=== PATIENT | female | born 1940 | race Caucasian/White ===

== ENCOUNTER 2016-11-28 14:44 | Emergency (ER) | payer MEDICARE ==
--- NOTE | ~2016-11-28 | CT71 ---
[facility] A Service of [facility] RADIOLOGY TEXT RESULTS PATIENT: MARAH CHAN LOCATION: SED : 42 UNIT #: [id number] AGE: [address]: Ronald Velázquez MD SEX: F ORDER DR: [id number] [place] [address] [id number] E MR#: [id number] Acc #: [id number] NAME: MARAH CHAN : 1940 SEX: F STUDY DATE/TIME: 11/28/2016 14:36 UNIT: SED ROOM: STUDY DESCRIPTION: CT Head Wo Contrast Attending Physician: Ronald Velázquez M.D. Referring Physician: Ronald Velázquez M.D. Ordering Physician: Ronald Velázquez M.D. Primary Care Physician: No Primary Care Physician MEDICAL IMAGING REPORT This report is preliminary unless electronic signature is present. EXAM Head CT without contrast. HISTORY Fell. Dementia. Head laceration. Multiple falls. Alzheimer-type dementia. Laceration in the middle of the forehead. Acute presentation. COMMENT Routine noncontrasted head CT is reviewed. There is a comparison study from 09/17/2016. No displaced calvarial fracture. Soft tissue swelling, left forehead area, consistent with site of injury described. No radiopaque foreign body is seen. The visualized paranasal sinuses show only minor mucosal thickening and no air-fluid level. The mastoid air cells are essentially clear. There is artifact on the lower images from patient motion. Redemonstrated is moderate white matter low attenuation, nonspecific, likely due to small vessel disease and not appreciably changed. There is no evidence for acute intracranial hemorrhage or extraaxial fluid collection. Generalized atrophy. No intracranial mass effect. No acute cortical infarct suspected. IMPRESSION 1. No acute intracranial injury is suspected. There is unfortunately considerable motion limitation of the lower images. 2. Redemonstration of probable sequelae of small vessel disease, not appreciably changed from 09/17/2016. [facility] A Service of [facility] RADIOLOGY TEXT RESULTS PATIENT: MARAH CHAN LOCATION: SED : 42 UNIT #: [id number] AGE: [address]: Ronald Velázquez MD SEX: F ORDER DR: Dictated by... Stephanie Copeland M.D. THIS IS AN ELECTRONICALLY VERIFIED REPORT Stephanie Copeland M.D. at 11/29/2016 2:01 PM TAN/supriya TD: 11/28/2016 18:34 JOB #: [id number] MEDICAL IMAGING REPORT
[~2016-11-28 14:44] MED LIST: ARICEPT5 M1 PO; ASPIRIN81 M2 PO; BUMEX; LEXAPRO; LEXAPRO PO; MACROBID100 M1; MELATONIN3 M4 PO; PRAVASTATIN SOD80 MG PO; SEROQUEL; [UNRECOGNIZED DRUG - OTHER]
== END 2016-11-28 16:00 | disposition home or self-care (01) ==
LOC: SED 14:44
DX: S09.90XA Unspecified injury of head, initial encounter (principal); S01.81XA Laceration without foreign body of other part of head, initial encounter; Z23 Encounter for immunization; E78.5 Hyperlipidemia, unspecified; I25.2 Old myocardial infarction; W19.XXXA Unspecified fall, initial encounter; Y92.9 Unspecified place or not applicable
CPT/HCPCS: 70450; 90471; 90715; 99284

== ENCOUNTER 2016-12-02 19:15 | Emergency (ER) | payer MEDICARE ==
--- NOTE | ~2016-12-02 | EKG ---
PATIENT: MARAH CHAN UNIT #: [id number] Ventricular Rate: 70 BPM Atrial Rate: 70 BPM P-R Interval: 164 ms QRS Duration: 88 ms Q-T Interval: 476 ms QTC Calculation(Bezet): 514 ms P [place]: 23 degrees Calculated R [place]: 50 degrees Calculated T [place]: 31 degrees Diagnosis Line: Normal sinus rhythm Diagnosis Line: Prolonged QT Baseline wander Diagnosis Line: Abnormal ECG Diagnosis Line: When compared with ECG of 02-SEP-2016 16:56, Diagnosis Line: QT has lengthened Diagnosis Line: Confirmed by CAITLYN LEON MD ([id number]) on 12/04/2016 Diagnosis Line: 9:16:08 AM INTERPRETING MD: EDWARD PARKER
--- NOTE | ~2016-12-02 | CR72 ---
[facility] A Service of [facility] RADIOLOGY TEXT RESULTS PATIENT: MARAH CHAN LOCATION: [facility] : 42 UNIT #: [id number] AGE: [address]: Meliton Barboza MD SEX: F ORDER DR: [id number] [facility] [address] [place], [place] [address] [id number] E MR#: [id number] Acc #: [id number] NAME: MARAH CHAN : 1940 SEX: F STUDY DATE/TIME: 12/02/2016 17:37 UNIT: [facility] ROOM: STUDY DESCRIPTION: CR Chest Single View Portable Attending Physician: Meliton Barboza M.D. Ordering Physician: Meilton Barboza M.D. Primary Care Physician: No Primary Care Physician MEDICAL IMAGING REPORT This report is preliminary unless electronic signature is present EXAM Chest x-ray single-view portable HISTORY Altered mental status, dementia, and confusion today. COMMENT A single frontal portable view of the chest timed 1737 on 12/02/2016 are reviewed. COMPARISON None. FINDINGS Mild rotation of the patient to the right. Top normal heart size. Evidence for old granulomatous disease. No acute congestive failure, pleural effusion, or pneumothorax. No acute-appearing parenchymal infiltrate. IMPRESSION 1. No active disease is seen in the chest. Dictated by... Stephanie Copeland M.D. THIS IS AN ELECTRONICALLY VERIFIED REPORT Stephanie Copeland M.D. at 12/03/2016 10:20 AM SAC/aa TD: 12/03/2016 10:01 JOB #: [id number] [facility] A Service [facility] RADIOLOGY TEXT RESULTS PATIENT: MARAH CHAN LOCATION: [facility] : 42 UNIT #: [id number] AGE: [address]: Meliton Barboza MD SEX: F ORDER DR: MEDICAL IMAGING REPORT Page 1 of 1 COPY
[2016-12-02 17:18] LABS: URINE SOURCE CLEAN CATCH
[2016-12-02 17:28] LABS: URINE APPEARANCE CLEAR; URINE BILIRUBIN NEG (NEG); URINE BLOOD NEG (NEG); URINE COLOR YELLOW; URINE GLUCOSE NEG (NEG); URINE KETONE NEG (NEG); URINE LEUKOCYTE ESTERASE NEG (NEG); URINE NITRATE NEG (NEG); URINE PROTEIN NEG (NEG); URINE SPECIFIC GRAVITY 1.003 (1.003-1.035); URINE UROBILINOGEN 0.2 MG/DL (NEG)
[2016-12-02 17:46] LABS: CULTURE INDICATED? NO
[2016-12-02 17:55] LABS: POC - CKMB 2.7 ng/mL (0.0-7.9); POC - TROPONIN <0.05 ng/mL (<=0.05)
[2016-12-02 17:58] LABS: BASOPHIL% 0.5 % (0-2.5); EOSINOPHIL# 0.5 X10e3 (0-0.7); EOSINOPHIL% 6.4 % (0.0-7.0); HEMATOCRIT 40.8 % (35.0-45.0); HEMOGLOBIN 13.2 gm/dL (12.0-16.0); LYMPHOCYTE# 1.7 X10e3 (1.0-3.5); LYMPHOCYTE% 21.8 % (17.0-45.0); MEAN CELL VOLUME 93.7 FL (83-96); MEAN CORPUSCULAR HEMOGLOBIN 30.4 PG (28-34); MEAN CORPUSCULAR HGB CONC 32.4 g/dL (30-36); MEAN PLATELET VOLUME 10.1 FL (6.5-11.5); MONOCYTE# 0.7 X10e3 (0-1.0); MONOCYTE% 9.3 % (3.0-12.0); NEUTROPHIL# 4.7 X10e3 (1.5-7.1); PLATELET COUNT 235 X10e3 (140-420); RED BLOOD COUNT 4.35 X10e (3.90-5.30); RED CELL DISTRIBUTION WIDTH 12.9 % (11.0-15.5); WHITE BLOOD COUNT 7.6 X10e3 (4.0-10.5)
[2016-12-02 18:02] LABS: DIFF IND NO
[2016-12-02 18:16] LABS: ALBUMIN SERUM 4.4 g/dL (3.5-5.0); ALKALINE PHOSPHATASE 73 U/L (32-92); ALT (SGPT) 14 U/L (10-40); AST (SGOT) 25 U/L (10-42); BILIRUBIN, DIRECT 0.2 mg/dL (0.0-0.2); BILIRUBIN,INDIRECT 0.5 mg/dL (0.0-0.9); BILIRUBIN,TOTAL 0.7 mg/dL (0.2-2.0); BLOOD UREA NITROGEN 21 mg/dL (9-23); BUN/CREATININE RATIO 23.33; CALCIUM SERUM 9.2 mg/dL (8.4-10.2); CARBON DIOXIDE 31 mmol/L (22-31); CHLORIDE 97 mmol/L (100-111); CREATININE SERUM 0.9 mg/dL (0.6-1.4); GLOM FILT RATE Estimated ABOVE60 mL/min (>60); GLUCOSE FASTING 85 mg/dL (70-110); POTASSIUM 3.3 mmol/L (3.5-5.1); PROTEIN TOTAL SERUM 7.3 g/dL (6.0-8.3); SODIUM 139 mmol/L (135-145)
== END 2016-12-03 06:08 | disposition home or self-care (01) ==
LOC: CED 19:15
PROVIDERS: Emergency Medicine
DX: F03.91 Unspecified dementia, unspecified severity, with behavioral disturbance (principal); Z79.899 Other long term (current) drug therapy
CPT/HCPCS: 36415; 71010; 80048; 80076; 81003; 82553; 83605; 84484; 85025; 87040; 93005; 96372; 99284; J3486

== ENCOUNTER 2017-01-20 14:37 | Emergency (ER) | payer MEDICARE ==
--- NOTE | ~2017-01-20 | CR72 ---
[facility] A Service of [facility] RADIOLOGY TEXT RESULTS PATIENT: MARAH CHAN LOCATION: [facility] : 42 UNIT #: [id number] AGE: [address]: Richard Cole MD SEX: F ORDER DR: [id number] [facility] [address] [place], [place] [address] [id number] E MR#: [id number] Acc #: [id number] NAME: MARAH CHAN : 1940 SEX: F STUDY DATE/TIME: 01/20/2017 19:25 UNIT: [facility] ROOM: STUDY DESCRIPTION: CR Chest Single View Portable Attending Physician: Richard Cole M.D. Ordering Physician: Ed Que Katz M.D. Primary Care Physician: No Primary Care Physician MEDICAL IMAGING REPORT This report is preliminary unless electronic signature is present EXAM Portable chest. HISTORY Cough for 2 weeks. FINDINGS The cardiac size and pulmonary vascularity are normal. Mild linear atelectasis or scarring at the left base. No airspace infiltrates or effusions. Incidental small calcified bilateral hilar nodes and calcified granuloma in the right lung base. IMPRESSION No acute findings. No active disease. Dictated by... Andrea Morales M.D. THIS IS AN ELECTRONICALLY VERIFIED REPORT Andrea Morales M.D. at 01/20/2017 11:17 PM COURTNEY/zainab TD: 01/20/2017 22:28 JOB #: [id number] MEDICAL IMAGING REPORT Page 1 of 1 COPY
--- NOTE | ~2017-01-20 | EKG ---
PATIENT: MARAH CHAN UNIT #: [id number] Ventricular Rate: 56 BPM Atrial Rate: 56 BPM P-R Interval: 140 ms QRS Duration: 78 ms Q-T Interval: 522 ms QTC Calculation(Bezet): 503 ms P [place]: 13 degrees Calculated R [place]: 49 degrees Calculated T [place]: 33 degrees Diagnosis Line: Sinus bradycardia Diagnosis Line: Prolonged QT Diagnosis Line: Abnormal ECG Diagnosis Line: When compared with ECG of 02-DEC-2016 17:48, Diagnosis Line: ST elevation now present in Lateral leads Diagnosis Line: Confirmed by CAITLYN LEON MD ([id number]) on 01/21/2017 Diagnosis Line: 10:04:54 AM INTERPRETING MD: EDWARD PARKER
--- NOTE | ~2017-01-20 | CT71 ---
[facility] A Service of [facility] RADIOLOGY TEXT RESULTS PATIENT: MARAH CHAN LOCATION: [facility] : 42 UNIT #: [id number] AGE: [address]: Richard Cole MD SEX: F ORDER DR: [id number] [place] [address] [place], [place] [address] [id number] E MR#: [id number] Acc #: [id number] NAME: MARAH CHAN : 1940 SEX: F STUDY DATE/TIME: 01/20/2017 19:54 UNIT: Z[facility] ROOM: STUDY DESCRIPTION: CT Head Wo Contrast Attending Physician: Richard Cole M.D. Referring Physician: Greg Nguyen M.D. Ordering Physician: Lul Katz M.D. Primary Care Physician: No Primary Care Physician MEDICAL IMAGING REPORT This report is preliminary unless electronic signature is present EXAM CT brain without contrast. DATE OF EXAM 01/20/2017 HISTORY Confusion and mental status decline today. TECHNIQUE This CT exam was performed with one or more of the following radiation dose reduction techniques: automatic exposure control, adjustment of mA and/or kV according to patient size, and iterative reconstruction. FINDINGS CT brain without contrast demonstrates moderate chronic ischemic changes in the deep white matter bilaterally and [id number] generalized cerebral cortical atrophy. No intracranial hemorrhage, midline shift or ventricular dilatation or focal atrophy. IMPRESSION 1. No acute intracranial findings. 2. Moderate chronic ischemic changes in the deep white matter bilaterally and tmwr-[id number] generalized cerebral cortical atrophy. Dictated by... Andrea Morales M.D. THIS IS AN ELECTRONICALLY VERIFIED REPORT Andrea Morales M.D. at 01/20/2017 11:17 PM [facility] A Service [facility] RADIOLOGY TEXT RESULTS PATIENT: MARAH CHAN LOCATION: [facility] : 42 UNIT #: [id number] AGE: [address]: Richard Cole MD SEX: F ORDER DR: Gabi TD: 01/20/2017 22:34 JOB #: [id number] MEDICAL IMAGING REPORT Page 1 of 1 COPY
[2017-01-20 16:05] LABS: BASOPHIL# 0.1 X10e3 (0-0.3); BASOPHIL% 0.7 % (0-2.5); EOSINOPHIL# 0.2 X10e3 (0-0.7); EOSINOPHIL% 2.1 % (0.0-7.0); HEMATOCRIT 34.2 % (35.0-45.0); HEMOGLOBIN 11.1 gm/dL (12.0-16.0); LYMPHOCYTE# 1.3 X10e3 (1.0-3.5); LYMPHOCYTE% 17.1 % (17.0-45.0); MEAN CELL VOLUME 92.9 FL (83-96); MEAN CORPUSCULAR HEMOGLOBIN 30.3 PG (28-34); MEAN CORPUSCULAR HGB CONC 32.6 g/dL (30-36); MEAN PLATELET VOLUME 9.1 FL (6.5-11.5); MONOCYTE# 1.1 X10e3 (0-1.0); MONOCYTE% 14.2 % (3.0-12.0); NEUTROPHIL# 5.1 X10e3 (1.5-7.1); NEUTROPHIL% 65.9 % (40-75); PLATELET COUNT 240 X10e3 (140-420); RED BLOOD COUNT 3.68 X10e (3.90-5.30); RED CELL DISTRIBUTION WIDTH 13.9 % (11.0-15.5); WHITE BLOOD COUNT 7.7 X10e3 (4.0-10.5)
[2017-01-20 16:11] LABS: DIFF IND NO
[2017-01-20 16:13] LABS: POC - CKMB 9.2 ng/mL (0.0-7.9); POC - TROPONIN <0.05 ng/mL (<=0.05)
[2017-01-20 16:18] LABS: INR 1.1; PROTHROMBIN TIME (PATIENT) 11.2 SECONDS (9.6-11.5)
[2017-01-20 16:21] LABS: URINE SOURCE CLEAN CATCH
[2017-01-20 16:25] LABS: URINE APPEARANCE CLEAR; URINE BILIRUBIN NEG (NEG); URINE BLOOD NEG (NEG); URINE COLOR YELLOW; URINE GLUCOSE NEG (NEG); URINE KETONE NEG (NEG); URINE LEUKOCYTE ESTERASE NEG (NEG); URINE NITRATE NEG (NEG); URINE PH 7.5 (5-8); URINE PROTEIN NEG (NEG); URINE SPECIFIC GRAVITY 1.012 (1.003-1.035)
[2017-01-20 16:31] LABS: ALBUMIN SERUM 3.2 g/dL (3.5-5.0); BILIRUBIN, DIRECT 0.2 mg/dL (0.0-0.2); BILIRUBIN,INDIRECT 0.2 mg/dL (0.0-0.9); BILIRUBIN,TOTAL 0.4 mg/dL (0.2-2.0); BUN/CREATININE RATIO 41.42; CALCIUM SERUM 8.9 mg/dL (8.4-10.2); CREATININE SERUM 0.7 mg/dL (0.6-1.4); GLOM FILT RATE Estimated 85.4 mL/min (>60); POTASSIUM 4.1 mmol/L (3.5-5.1); PROTEIN TOTAL SERUM 6.1 g/dL (6.0-8.3)
[2017-01-20 16:35] LABS: CULTURE INDICATED? NO
[2017-01-20] MEDS ORDERED: CATAPRES-TTS-10.1 M1 TD (19:10)
[2017-01-20] MEDS ORDERED: ASPIRIN81 MG PO (19:10)
[2017-01-20] MEDS ORDERED: LEXAPRO20 MG PO (19:11)
[2017-01-20] MEDS ORDERED: LAMICTAL PO (19:12)
[2017-01-20] MEDS ORDERED: ZAROXYLYN PO (19:13)
[2017-01-20] MEDS ORDERED: K-DUR20 ME1 PO (19:14)
[2017-01-20] MEDS ORDERED: RISPERDAL0.25 MG PO (19:14)
[2017-01-20] MEDS ORDERED: RAZADYNE4 M1 PO (19:15)
[2017-01-20] MEDS ORDERED: MELATONIN3 MG PO (19:15)
[2017-01-20] MEDS ORDERED: TYLENOL325 M1 PO (19:16)
[2017-01-20] MEDS ORDERED: ZYPREXA10 M1 IM (19:16)
[2017-01-20] MEDS ORDERED: ATIVAN0.5 M1 PO (19:17)
[2017-01-20] MEDS ORDERED: MILK OF MAGNESIA PO (19:18)
[2017-01-20] MEDS ORDERED: MYLANTA LIQUID PO (19:18)
[2017-01-20] MEDS ORDERED: LEVOTHYROXINE50 MCG PO (19:20)
[2017-01-20] MEDS ORDERED: [UNRECOGNIZED DRUG - CODE] PO (19:20)
== END 2017-01-20 22:29 | disposition home or self-care (01) ==
LOC: CED 14:37
PROVIDERS: Emergency Medicine
DX: R41.82 Altered mental status, unspecified (principal); I95.9 Hypotension, unspecified; Z79.899 Other long term (current) drug therapy
CPT/HCPCS: 36415; 70450; 71010; 80048; 80076; 81003; 82553; 84484; 85025; 85610; 93005; 96360; 99285

== ENCOUNTER 2017-02-08 16:34 | Inpatient (IN) | payer MEDICARE ==
--- NOTE | ~2017-02-08 | EKG ---
PATIENT: MARAH CHAN UNIT #: [id number] Ventricular Rate: 63 BPM Atrial Rate: 63 BPM P-R Interval: 164 ms QRS Duration: 82 ms Q-T Interval: 436 ms QTC Calculation(Bezet): 446 ms P [place]: 28 degrees Calculated R [place]: 35 degrees Calculated T [place]: 46 degrees Diagnosis Line: Normal sinus rhythm Diagnosis Line: Normal ECG Diagnosis Line: When compared with ECG of 20-JAN-2017 16:15, Diagnosis Line: QT has shortened Diagnosis Line: Confirmed by LIZZIE DAVENPORT MD ([id number]) on Diagnosis Line: 02/10/2017 3:17:09 PM INTERPRETING MD: ISSAC PARKER
--- NOTE | ~2017-02-08 | CR72 ---
[facility] Service of [facility] RADIOLOGY TEXT RESULTS PATIENT: MARAH CHAN LOCATION: [facility] 238-01 : 42 UNIT #: [id number] AGE: [address]: Ashlyn Lora MD SEX: F ORDER DR: [id number] [facility] [address] [place], [place] [address] [id number] I MR#: [id number] Acc #: [id number] NAME: MARAH CHAN : 1940 SEX: F STUDY DATE/TIME: 02/08/2017 18:23 UNIT: C3A PCU ROOM: 340 STUDY DESCRIPTION: CR Chest Single View Portable Attending Physician: Ashlyn Lora M.D. Ordering Physician: Mercedez Juarez M.D. Primary Care Physician: Primary Care Physician No MEDICAL IMAGING REPORT This report is preliminary unless electronic signature is present EXAM Portable chest, 02/08 INDICATION Mental status changes today with suspected fall. FINDINGS AP view of the chest compared with 01/20/2017. Cardiac and mediastinal contours are stable. The lungs are clear. No pneumothorax. IMPRESSION No active disease. Dictated by... Meliton Beckham Jr., M.D. THIS IS AN ELECTRONICALLY VERIFIED REPORT Meliton Beckham Jr., M.D. at 02/09/2017 8:46 PM AMENA/nieves TD: 02/09/2017 04:27 JOB #: [id number] MEDICAL IMAGING REPORT Page 1 of 1 COPY
--- NOTE | ~2017-02-08 | HP ---
Unit #: [id number] #: [id number] Patient: MARAH CHAN [id number] [address] [place], [place] [address] [id number] I MR#: [id number] NAME: MARAH CHAN ROOM: 340 Age: 76 Sex: F Admission Date: 02/08/2017 : 1940 Attending Physician: Ashlyn Lora M.D. Primary Care Physician: Primary Care Physician No HISTORY AND PHYSICAL CHIEF COMPLAINT Low blood pressure. HISTORY OF PRESENT ILLNESS This is a 76-year-old female who has dementia and is not able to provide history, most of the history was taken from patient's sister who is at the bedside. The patient is being evaluated in room 340. The patient was noted to have low blood pressure at the intermediate. She was brought to the ER. Blood pressure was low but which has resolved at this time. The patient has confusion. She has a history of dementia. According to the patient's sister, she is her normal self today, although yesterday she was very lethargic. The patient was found to have a urinary tract infection and was admitted for treatment, hydration. Patient is awake, alert and oriented x1. She seems to be very comfortable although she is very confused and is not able to provide any history. There is no history of vomiting, nausea, diarrhea, or any pain anywhere. PAST MEDICAL HISTORY 1. History of dementia. 2. History of coronary artery disease. 3. History of hypertension. 4. History of hyperlipidemia. 5. History of coronary artery disease. PAST SURGICAL HISTORY None. HOME MEDICATIONS Reviewed and include: 1. Aspirin 81 mg daily. 2. Lexapro 10 mg daily. 3. Lamictal 25 mg daily. 4. Zaroxolyn 2.5 mg Thursday, Thursday, and Thursday. 5. Tylenol 650 q.4 h. p.r.n. 6. Ativan 0.5 mg q.12 h. p.r.n. 7. Niferex 150 mg b.i.d. 8. Levothyroxine 50 mcg daily. 9. Potassium 20 mEq three times a week. ALLERGIES No known drug allergies. SOCIAL HISTORY The patient is a resident of a intermediate. No history of smoking, Unit #: [id number] #: [id number] Patient: MARAH CHAN alcohol or drug abuse. FAMILY HISTORY Unremarkable. REVIEW OF SYSTEMS A 12-point review of systems was covered with the patient's sister and seems to be stable. PHYSICAL EXAMINATION VITAL SIGNS: Blood pressure 170/69, on admission it was 97/60, oxygen saturation is 100% on room air, respiratory rate 18, pulse 87, temperature 98.1. GENERAL: The patient is lying in bed. Does not seem to be in any respiratory distress. HEAD: Normocephalic. Eye movements are normal. Pale conjunctivae. NECK: Supple. CHEST: Fair air entry, no additional sounds. HEART: S1, S2 positive, regular rhythm. ABDOMEN: Mild tenderness, although I am not sure whether it is a tenderness or patient does not want me to examine her abdomen. EXTREMITIES: Trace edema is present, left is more than right. NEUROLOGIC: Awake, alert. Moving all her extremities. Patient is confused. DIAGNOSTIC STUDIES LABORATORY: Urinalysis shows 3+ leukocyte esterase, 3+ urine bacteria. WBC 8.3, hemoglobin 10.1, hematocrit 30.3, platelet count 271. Lactic acid 1.1. Sodium 138, potassium 3.9, chloride 104, BUN 25, creatinine 1.1, liver enzymes are stable. CK is 991. Blood cultures are no growth. ASSESSMENT AND PLAN The patient is being admitted to telemetry unit with: 1. Hypertension. 2. Urinary tract infection. 3. Dementia. 4. Anemia. 5. Coronary artery disease. 6. Hypothyroidism. PLAN 1. Admit to [facility]. 2. IV Rocephin 1 gram q.24 h. is being started. 3. IV fluids are being started. 4. Urine culture is done. 5. Blood culture is done. 6. Home medications have been reviewed and readjusted. 7. Plan of care has been discussed with patient's sister at length. She does verbalize understanding. 8. Please refer to progress note for further orders. Dictated by Ashlyn Lora M.D. Unit #: [id number] #: [id number] Patient: MARAH CHAN AMALIA/anupam TD: 02/09/2017 15:45 JOB #: [id number] HISTORY AND PHYSICAL Page 1 of 1 X Ashlyn Lora MD HISTORY AND PHYSICAL
--- NOTE | ~2017-02-08 | CR252 ---
[facility] A Service of [facility] RADIOLOGY TEXT RESULTS PATIENT: MARAH CHAN LOCATION: [facility] 238-01 : 42 UNIT #: [id number] AGE: [address]: Ashlyn Lora MD SEX: F ORDER DR: [id number] [facility] [address] [place], [place] [address] [id number] I MR#: [id number] Acc #: [id number] NAME: MARAH CHAN : 1940 SEX: F STUDY DATE/TIME: 02/08/2017 18:26 UNIT: C3A PCU ROOM: 340 STUDY DESCRIPTION: CR Tibia and Fibula 2 Views Lt Attending Physician: Ashlyn Lora M.D. Ordering Physician: Mercedez Juarez M.D. MEDICAL IMAGING REPORT This report is preliminary unless electronic signature is present EXAM Left tib-fib, 02/08 INDICATION Lower extremity pain after fall today. FINDINGS There is no evidence of fracture, dislocation, or radiopaque foreign body. IMPRESSION Normal tibia and fibula. Dictated by... Meliton Beckham Jr., M.D. THIS IS AN ELECTRONICALLY VERIFIED REPORT Meliton Beckham Jr., M.D. at 02/09/2017 8:46 PM AMENA/nieves TD: 02/09/2017 04:29 JOB #: [id number] MEDICAL IMAGING REPORT Page 1 of 1 COPY
--- NOTE | ~2017-02-08 | A ---
[facility] DATE: 02/18/17 Patient: MARAH CHAN Physician: SELENA Address: [address] [place] [address] Room/Bed: [address] [place] [address], Zip: [place] [address] Admit Date: 02/08/17 Date of : 42 Height: 5 4 Weight: 132 60 NUTRITIONAL ASSESSMENT: REASON: LOS ASSESSMENT PT IS 76 Y.O. FEMALE ADMITTED FOR UTI, S/P FALL PMH: DEMENTIA, HTN, CAD, HLD, HYPOTHYROIDISM Anthropometrics: 5'4", WT: 132# (60 KG), BMI: 22.7, 110%IBW Labs: BUN: 5, ALB: 2.9 Meds: KCL, MAG SULFATE, PEPCID, SYNTHROID, NACL I/O & Bowel function: 480/7 Skin Integrity: DRY SKIN NOTED ALL OVER BODY Assessment: CHART REVIEWED AND EVENTS NOTED. PT SEEN FOR LENGTH OF STAY ASSESSMENT (10 DAYS). PT ASLEEP AT TIME OF VISIT-RD ATTEMPTED TO WAKE PT. PT DID NOT WAKE TO VERBAL CUES. PER RN AND CHART, PT NOTED TO HAVE DEMENTIA, NOTING FAIR PO INTAKE AND APPETITE. PLANS IN PLACE FOR PT TO D/C TO REHAB WHEN BED AVAILABLE. RD TO REMAIN AVAILABLE. Dx: INADEQUATE NUTRIENT INTAKE R/T PMH-DEMENTIA AEB RN AND CHART REVIEW/REPORT ABOVE. Intervention: 1. REGULAR DIET Monitoring, Evaluation and Goals: 1. ORAL INTAKE; CONSUME >50% OF MEALS W/NO C/O N/V/D 2. WEIGHTS; PROMOTE WEIGHT MAINTENANCE 3. GI; PROMOTE REGULAR BOWEL FUNCTION MONITOR: -PO INTAKE/APPETITE -WEIGHTS Recommendations: 1. CONTINUE TO ENCOURAGE ADEQUATE PO INTAKE 2. IF PO INTAKE <50%, PLEASE ORDER APPROPRIATE SUPPLEMENTS FOR ADDITIONAL PROTEIN AND KCAL (ENSURE ENLIVE, ENSURE PUDDING, MAGIC CUP OR ENSURE CLEAR BID) [facility] Therapy DATE: 02/18/17 Patient: MARAH CHAN Physician: SELENA Address: [address] [place] [address] Room/Bed: [address] [place] [address], Zip: [place] [address] Admit Date: 02/08/17 Date of : 42 Height: 5 4 Weight: 132 60 3. CONSIDER ADDING MVI W/MINERAL DAILY TO PT'S CURRENT MEDICATION REGIMEN RD WILL F/U PER PROTOCOL PT IS MILDLY COMPROMISED Respectfully, BETH ANDERSEN MS, RD, LD Food and Nutritional Services [facility] cc: client file
--- NOTE | ~2017-02-08 | CR106 ---
[facility] A Service of [facility] & [facility] RADIOLOGY TEXT RESULTS PATIENT: MARAH CHAN LOCATION: [facility] 238-01 : 42 UNIT #: [id number] AGE: [address]: Ashlyn Lora MD SEX: F ORDER DR: [id number] [facility] [address]. [place], [place] [address] [id number] I MR#: [id number] Acc #: [id number] NAME: MARAH CHAN : 1940 SEX: F STUDY DATE/TIME: 02/08/2017 18:30 UNIT: C3A PCU ROOM: 340 STUDY DESCRIPTION: CR Femur 2 Views Lt Attending Physician: Ashlyn Lora M.D. Ordering Physician: Mercedez Juarez M.D. MEDICAL IMAGING REPORT This report is preliminary unless electronic signature is present EXAM Left femur, 02/08/2017 INDICATION Left leg pain after fall today. FINDINGS 4 views of the left femur were obtained. No acute fracture or malalignment is identified. IMPRESSION Negative left femur. Dictated by... Meliton Beckham Jr., M.D. THIS IS AN ELECTRONICALLY VERIFIED REPORT Meliton Beckham Jr., M.D. at 02/09/2017 8:46 PM AMENA/nieves TD: 02/09/2017 04:30 JOB #: [id number] MEDICAL IMAGING REPORT Page 1 of 1 COPY
--- NOTE | ~2017-02-08 | DS ---
Unit #: [id number] #: [id number] Patient: ERI ANDUJAR [id number] [address] [address] [id number] I MR#: [id number] NAME: ERI ANDUJAR ROOM: 238 Age: 76 Sex: F Admission Date: 02/08/2017 : 1940 Discharge Date: 02/13/2017 Attending Physician: Ashlyn Lora M.D. Primary Care Physician: No Primary Care Physician DISCHARGE SUMMARY FINAL DIAGNOSES 1. Hypotension on admission, even at the custodial, and was the reason for transfer to ER; has improved. 2. Urinary tract infection with urine culture positive for Proteus mirabilis more than 100,000 colonies, which is sensitive ceftriaxone and Bactrim. 3. History of significant dementia. 4. History of coronary artery disease. 5. History of hypertension. 6. History of hyperlipidemia. 7. Hypokalemia. 8. Hypothyroidism. DISCHARGE MEDICATIONS 1. Bactrim DS 1 tablet p.o. b.i.d. for 5 days. 2. Mylanta 30 mL q.6 p.r.n. 3. Levothyroxine 50 mcg p.o. every day. 4. Potassium 20 mEq every day. 5. Aspirin 81 mg every day. 6. Niferex 150 mg b.i.d. 7. Zaroxolyn 2.5 mg Thursday, Thursday, and Thursday. 8. Ativan 0.5 mg q.12 p.r.n. for anxiety. 9. Lexapro 10 mg every day. 10. LaMICtal 25 mg every day. 11. Tylenol 650 q.4 p.r.n. DIAGNOSTIC STUDIES LABORATORY: Workup on discharge: Troponin less than 0.03. BMP shows sodium 140, potassium 3.3, chloride 105, BUN 6, and creatinine 0.7. CK 458. CBC shows WBC 7.4, hemoglobin 9.8, hematocrit 29.9, and platelet count of 269. TSH 2.38. Lactic acid 1.1 on admission. Blood cultures are negative. SIGNIFICANT RADIOLOGICAL STUDIES DONE DURING HOSPITALIZATION: Ultrasound of lower extremity, which was limited exam, because patient is not very compliant. Right common femoral and superficial femoral veins are patent. Patient refused further. Left hip x-ray: No fracture or malalignment identified. Large volume of stool was seen. Left femur x-ray negative. No fractures. Left knee x-ray was negative. Unit #: [id number] #: [id number] Patient: ERI ANDUJAR Left tibia and fibula negative. These tests were done because of patient's history of fall at the custodial. Chest x-ray: No active disease. CT scan of the head, which shows atrophy with chronic ischemic changes. No acute changes were seen. HOSPITAL COURSE Ms. Eri Andujar is a 76-year-old female who was admitted on 02/08/17 with hypertension and had a fall in the custodial a few days ago. Patient was admitted to hospital and IV fluids were given because of blood pressure and was found to have urinary tract infection. Patient was started on IV Rocephin and she has received a few days of IV Rocephin. Blood cultures are negative. Patient has been afebrile all throughout. Patient did complain of chest pain one time. Cardiac enzymes were done, which were negative and not significant. Patient does have significant dementia. I have discussed with patient's daughter. Patient will be discharged to custodial in stable condition. EXAMINATION ON DISCHARGE VITAL SIGNS: Blood pressure is 102/54, respiratory rate 15, pulse is 80, temperature is 97.2, and oxygen saturation is 98%. HEENT: Head is normocephalic. CHEST: Fair air entry. No additional sounds (1) . HEART: Regular rhythm. ABDOMEN: Soft. EXTREMITIES: Trace edema. CONSULTING SERVICES PROJECT MANAGER: Patient is confused. DISCHARGE INSTRUCTIONS 1. Patient will be discharged home. 2. Potassium will be replaced before discharge. 3. Medications as per med rec. 4. Dr. Monson to follow the patient in custodial. 5. BMP to be done in one week. 6. PT and OT at rehab. Dictated by... Ashlyn Lora M.D. Gena TD: 02/13/2017 07:52 JOB #: [id number] Unit #: [id number] #: [id number] Patient: ERI ANDUJAR DISCHARGE SUMMARY Page 1 of 1 X Ashlyn Lora MD SUMMARY
--- NOTE | ~2017-02-08 | DS ---
Unit #: [id number] #: [id number] Patient: MARAH CHAN [id number] [address] [address] [id number] I MR#: [id number] NAME: MARAH CHAN ROOM: 238 Age: 76 Sex: F Admission Date: 02/08/2017 : 1940 Discharge Date: 02/17/2017 Attending Physician: Ashlyn Lora M.D. Primary Care Physician: No Primary Care Physician DISCHARGE SUMMARY ADDENDUM FINAL DIAGNOSIS Stays the same as previous. DISCHARGE MEDICATIONS 1. Earlier I had dictated that patient will need Bactrim DS twice a day for five days. At this time the patient has completed the course. 2. Patient has completed the course of IV antibiotics, does not require any more medication at this. So we can discontinue antibiotics. Patient's discharge was held because there was no bed available. Patient will be discharged home today. PHYSICAL EXAMINATION VITAL SIGNS ON DISCHARGE: Blood pressure 136/88, respiratory rate 18, pulse 67, temperature 97.3, oxygen saturation is 100%. HEENT: Head is normocephalic. CHEST: Fair air entry. Decreased at the bases. CVS: Regular rhythm. ABDOMEN: Soft. DISCHARGE INSTRUCTIONS 1. Again patient will be discharged to rehab facility in stable condition. 2. The patient's family will be informed, PT and OT to be done at the long term. 3. BNP and CBC to be done in one week. Dr. Monson to follow the patient. Dictated by... Lucinda Danielle/grupo TD: 02/17/2017 13:15 JOB #: [id number] Unit #: [id number] #: [id number] Patient: MARAH CHAN DISCHARGE SUMMARY Page 1 of 1 X Ashlyn Lora MD X DISCHARGE SUMMARY
--- NOTE | ~2017-02-08 | CR172 ---
[facility] A Service of [facility] & [facility] RADIOLOGY TEXT RESULTS PATIENT: MARAH CHAN LOCATION: [facility] 238-01 : 42 UNIT #: [id number] AGE: [address]: Ashlyn Lora MD SEX: F ORDER DR: [id number] [facility] [address] [place], [place] [address] [id number] I MR#: [id number] Acc #: [id number] NAME: MARAH CHAN : 1940 SEX: F STUDY DATE/TIME: 02/08/2017 18:29 UNIT: C3A PCU ROOM: 340 STUDY DESCRIPTION: CR Knee 3 Views Lt Attending Physician: Ashlyn Lora M.D. Ordering Physician: Mercedez Juarez M.D. MEDICAL IMAGING REPORT This report is preliminary unless electronic signature is present EXAM Left knee, 02/08 INDICATION Knee pain after fall today. FINDINGS 3 views of the left knee were obtained. There is no fracture or malalignment. There is no joint effusion. IMPRESSION Negative left knee. Dictated by... Meliton Beckham Jr., M.D. THIS IS AN ELECTRONICALLY VERIFIED REPORT Meliton Beckham Jr., M.D. at 02/09/2017 8:46 PM AMENA/nieves TD: 02/09/2017 04:34 JOB #: [id number] MEDICAL IMAGING REPORT Page 1 of 1 COPY
--- NOTE | ~2017-02-08 | US84 ---
[id number] [facility] [address] [place], [place] [address] [id number] I MR#: [id number] Acc #: [id number] NAME: MARAH CHAN : 1940 SEX: F STUDY DATE/TIME: 02/10/2017 8:02 UNIT: C2A ROOM: 238 STUDY DESCRIPTION: US LE Veins Complete Hernando Stdy Attending Physician: Ashlyn Lora M.D. Ordering Physician: Ashlyn Lora M.D. Primary Care Physician: Primary Care Physician No MEDICAL IMAGING REPORT This report is preliminary unless electronic signature is present EXAM Right lower extremity Doppler venous ultrasound DATE 02/10/2017 HISTORY Pain and swelling in bilateral lower extremities for approximately a year. Patient denies history of blood clots and denies prior surgery. COMPARISON None FINDINGS Special note: This patient was originally ordered for bilateral lower extremity venous ultrasound. Only a portion of the right lower extremity was imaged, documenting patency of the right common femoral and femoral veins without deep venous thrombosis. However, the patient refused complete imaging of the right lower extremity (popliteal, anterior and posterior tibial and peroneal veins) and the patient refused left lower extremity imaging. IMPRESSION Limited examination. The right common femoral and superficial femoral veins are patent. However, the patient refused further, complete imaging of the right lower extremity veins, and refused imaging of the left lower extremity veins. Repeat imaging can be obtained when the patient is able to tolerate or cooperate. Dictated by... Agueda Kinney M.D. THIS IS AN ELECTRONICALLY VERIFIED REPORT Agueda Kinney M.D. at 02/10/2017 5:00 PM [facility]/[place] TD: 02/10/2017 11:52 JOB #: [id number] MEDICAL IMAGING REPORT Page 1 of 1 COPY
--- NOTE | ~2017-02-08 | CT71 ---
[facility] A Service of [facility] RADIOLOGY TEXT RESULTS PATIENT: MARAH CHAN LOCATION: [facility] : 42 UNIT #: [id number] AGE: [address]: Ashlyn Lora MD SEX: F ORDER DR: [id number] [facility] [address] [place], [place] [address] [id number] I MR#: [id number] Acc #: [id number] NAME: MARAH CHAN : 1940 SEX: F STUDY DATE/TIME: 02/08/2017 18:01 UNIT: [facility] ROOM: 238 STUDY DESCRIPTION: CT Head Wo Contrast Attending Physician: Ashlyn Lora M.D. Ordering Physician: Mercedez Juarez M.D. Primary Care Physician: Primary Care Physician No MEDICAL IMAGING REPORT This report is preliminary unless electronic signature is present EXAM Head CT without contrast, 02/08/2017 HISTORY Acute onset of lethargy and confusion today, altered mental status, hypotensive. This CT exam was performed with one or more of the following radiation dose reduction techniques: automatic exposure control, adjustment of mA and/or kV according to patient size, and iterative reconstruction. FINDINGS Axial images of the brain obtained without contrast show generalized atrophy. There are chronic ischemic changes seen around the ventricles. There is no evidence of mass effect, hemorrhage, or edema and no midline shift is seen. No acute changes are noted. IMPRESSION Atrophy with chronic ischemic changes. No acute changes are seen. Dictated by... Krunal Lowe M.D. THIS IS AN ELECTRONICALLY VERIFIED REPORT Krunal Lowe M.D. at 02/10/2017 10:42 AM BERT/nieves TD: 02/09/2017 03:38 JOB #: [id number] MEDICAL IMAGING REPORT [facility] A Service of [facility] & [facility] RADIOLOGY TEXT RESULTS PATIENT: MARAH CHAN LOCATION: [facility] : 42 UNIT #: [id number] AGE: [address]: Ashlyn Lora MD SEX: F ORDER DR: Page 1 of 1 COPY
--- NOTE | ~2017-02-08 | CR150 ---
[facility] A Service of [facility] & [facility] RADIOLOGY TEXT RESULTS PATIENT: MARAH CHAN LOCATION: A 238-01 : 42 UNIT #: [id number] AGE: [address]: Ashlyn Lora MD SEX: F ORDER DR: [id number] [facility] [address] [place], [place] [address] [id number] I MR#: [id number] Acc #: [id number] NAME: MARAH CHAN : 1940 SEX: F STUDY DATE/TIME: 02/08/2017 18:34 UNIT: C3A PCU ROOM: 340 STUDY DESCRIPTION: CR Hip Min 2 Views Lt Attending Physician: Ashlyn Lora M.D. Ordering Physician: Mercedez Juarez M.D. MEDICAL IMAGING REPORT This report is preliminary unless electronic signature is present EXAM Left hip and pelvis, 02/08 INDICATION Left hip pain and leg pain after fall today. FINDINGS AP pelvis was obtained in addition to a frog-leg left hip. No fracture or malalignment is seen. Femoral heads are normal without evidence of osteonecrosis. Note is made of a large volume of stool in the rectal vault. IMPRESSION No fracture or malalignment identified. Large volume of stool noted in the rectal vault. Dictated by... Meliton Beckham Jr., M.D. THIS IS AN ELECTRONICALLY VERIFIED REPORT Meliton Beckham Jr., M.D. at 02/09/2017 8:46 PM AMENA/nieves TD: 02/09/2017 04:33 JOB #: [id number] MEDICAL IMAGING REPORT Page 1 of 1 COPY
[~2017-02-08 16:34] MED LIST changes: +ASPIRIN81 MG PO; +ATIVAN0.5 M1 PO; +CATAPRES-TTS-10.1 M1 TD; +K-DUR20 ME1 PO; +LAMICTAL PO; +LEVOTHYROXINE50 MCG PO; +LEXAPRO20 MG PO; +MELATONIN3 MG PO; +MILK OF MAGNESIA PO; +MYLANTA LIQUID PO; +RAZADYNE4 M1 PO; +RISPERDAL0.25 MG PO; +TYLENOL325 M1 PO; +ZAROXYLYN PO; +ZYPREXA10 M1 IM; +[UNRECOGNIZED DRUG - CODE] PO
[2017-02-08 17:23] LABS: URINE SOURCE CATH
[2017-02-08 17:41] LABS: URINE APPEARANCE CLOUDY; URINE COLOR YELLOW; URINE LEUKOCYTE ESTERASE 3+ (NEG)
[2017-02-08 17:42] LABS: CULTURE INDICATED? YES; URBCS1 AUWI 25-50 /[HPF] (0-2); URINE BLOOD 2+ (NEG); URINE GLUCOSE NORM (NEG); URINE KETONE NEG (NEG); URINE NITRATE POS (NEG); URINE PROTEIN 2+ (NEG); URINE UROBILINOGEN 8 MG/DL (NEG); UWBCS1 AUWI INNUM (0-5)
[2017-02-08 17:43] LABS: URINE BACTERIA AUWI 3+ (NEGATIVE); URINE SQUAMOUS EPITHELIAL CELL FEW /[HPF]
[2017-02-08 17:46] LABS: URINE BILIRUBIN NEG (NEG)
[2017-02-08 18:21] LABS: BASOPHIL% 0.3 % (0-2.5); EOSINOPHIL% 0.6 % (0.0-7.0); HEMATOCRIT 30.3 % (35.0-45.0); HEMOGLOBIN 10.1 gm/dL (12.0-16.0); LYMPHOCYTE# 1.2 X10e3 (1.0-3.5); LYMPHOCYTE% 14.4 % (17.0-45.0); MEAN CELL VOLUME 93.6 FL (83-96); MEAN CORPUSCULAR HEMOGLOBIN 31.3 PG (28-34); MEAN CORPUSCULAR HGB CONC 33.4 g/dL (30-36); MEAN PLATELET VOLUME 9.2 FL (6.5-11.5); MONOCYTE# 1.1 X10e3 (0-1.0); MONOCYTE% 12.7 % (3.0-12.0); PLATELET COUNT 271 X10e3 (140-420); RED BLOOD COUNT 3.24 X10e (3.90-5.30); RED CELL DISTRIBUTION WIDTH 13.9 % (11.0-15.5); WHITE BLOOD COUNT 8.3 X10e3 (4.0-10.5)
[2017-02-08 18:22] LABS: POC - CKMB 14.8 ng/mL (0.0-7.9); POC - TROPONIN <0.05 ng/mL (<=0.05)
[2017-02-08 18:22] LABS: DIFF IND NO
[2017-02-08 18:36] LABS: PARTIAL THROMBOPLASTIN TIME 25.4 SECONDS (23.5-31.3); PROTHROMBIN TIME (PATIENT) 10.8 SECONDS (9.6-11.5)
[2017-02-08 18:47] LABS: ALBUMIN SERUM 2.9 g/dL (3.5-5.0); BILIRUBIN, DIRECT 0.1 mg/dL (0.0-0.2); BILIRUBIN,INDIRECT 0.5 mg/dL (0.0-0.9); BILIRUBIN,TOTAL 0.6 mg/dL (0.2-2.0); BUN/CREATININE RATIO 22.72; CALCIUM SERUM 8.1 mg/dL (8.4-10.2); CREATININE SERUM 1.1 mg/dL (0.6-1.4); GLOM FILT RATE Estimated 49.4 mL/min (>60); POTASSIUM 3.9 mmol/L (3.5-5.1); PROTEIN TOTAL SERUM 5.6 g/dL (6.0-8.3)
[2017-02-08 21:10] LABS: POC - TROPONIN <0.05 ng/mL (<=0.05)
[2017-02-09] MEDS ORDERED: K-DUR20 ME1 PO (00:16)
[2017-02-10 05:30] LABS: HEMATOCRIT 29.3 % (35.0-45.0); HEMOGLOBIN 9.7 gm/dL (12.0-16.0); MEAN CELL VOLUME 93.1 FL (83-96); MEAN CORPUSCULAR HEMOGLOBIN 30.8 PG (28-34); MEAN CORPUSCULAR HGB CONC 33.1 g/dL (30-36); MEAN PLATELET VOLUME 9.4 FL (6.5-11.5); RED BLOOD COUNT 3.14 X10e (3.90-5.30); RED CELL DISTRIBUTION WIDTH 13.8 % (11.0-15.5); WHITE BLOOD COUNT 8.1 X10e3 (4.0-10.5)
[2017-02-10 06:32] LABS: BUN/CREATININE RATIO 23.33; CALCIUM SERUM 8.3 mg/dL (8.4-10.2); CREATININE SERUM 0.6 mg/dL (0.6-1.4); GLOM FILT RATE Estimated 89.8 mL/min (>60); POTASSIUM 3.5 mmol/L (3.5-5.1)
[2017-02-12 05:48] LABS: HEMATOCRIT 29.9 % (35.0-45.0); HEMOGLOBIN 9.8 gm/dL (12.0-16.0); MEAN CELL VOLUME 93.3 FL (83-96); MEAN CORPUSCULAR HEMOGLOBIN 30.7 PG (28-34); MEAN CORPUSCULAR HGB CONC 32.9 g/dL (30-36); MEAN PLATELET VOLUME 9.2 FL (6.5-11.5); RED BLOOD COUNT 3.2 X10e (3.90-5.30); RED CELL DISTRIBUTION WIDTH 13.8 % (11.0-15.5); WHITE BLOOD COUNT 7.4 X10e3 (4.0-10.5)
[2017-02-12 07:00] LABS: BUN/CREATININE RATIO 8.57; CALCIUM SERUM 8.7 mg/dL (8.4-10.2); CREATININE SERUM 0.7 mg/dL (0.6-1.4); GLOM FILT RATE Estimated 85.4 mL/min (>60); POTASSIUM 3.3 mmol/L (3.5-5.1)
[2017-02-12 09:14] LABS: %MB 2.2 % (0.0-4.0)
[2017-02-13 11:41] LABS: HEMATOCRIT 35.3 % (35.0-45.0); HEMOGLOBIN 11.6 gm/dL (12.0-16.0); MEAN CELL VOLUME 94.2 FL (83-96); MEAN CORPUSCULAR HEMOGLOBIN 30.9 PG (28-34); MEAN CORPUSCULAR HGB CONC 32.8 g/dL (30-36); MEAN PLATELET VOLUME 9.9 FL (6.5-11.5); RED BLOOD COUNT 3.74 X10e (3.90-5.30)
[2017-02-13 11:57] LABS: BUN/CREATININE RATIO 7.14; CREATININE SERUM 0.7 mg/dL (0.6-1.4); GLOM FILT RATE Estimated 85.4 mL/min (>60); MAGNESIUM 1.5 mg/dL (1.6-3.0)
[2017-02-14 06:33] LABS: BUN/CREATININE RATIO 7.14; CALCIUM SERUM 8.9 mg/dL (8.4-10.2); CREATININE SERUM 0.7 mg/dL (0.6-1.4); GLOM FILT RATE Estimated 85.4 mL/min (>60); POTASSIUM 3.9 mmol/L (3.5-5.1)
[2017-02-15 09:21] LABS: MAGNESIUM 1.7 mg/dL (1.6-3.0); POTASSIUM 3.7 mmol/L (3.5-5.1)
[2017-02-17 06:45] LABS: MAGNESIUM 1.9 mg/dL (1.6-3.0)
[2017-02-18 05:26] LABS: MAGNESIUM 1.8 mg/dL (1.6-3.0); POTASSIUM 3.7 mmol/L (3.5-5.1)
== END 2017-02-19 08:35 | DRG 690 ==
LOC: CED 16:34 → CEDOF 20:05 → C2A 20:05 → C3A PCU 02-09 00:55 → C2A 02-09 19:45
PROVIDERS: Emergency Medicine; Hospitalist; Physician Assistant Medical
DX: N39.0 Urinary tract infection, site not specified (principal); I95.9 Hypotension, unspecified; B96.4 Proteus (mirabilis) (morganii) as the cause of diseases classified elsewhere; F03.90 Unspecified dementia, unspecified severity, without behavioral disturbance, psychotic disturbance, mood disturbance, and anxiety; D64.9 Anemia, unspecified; E87.6 Hypokalemia; I25.10 Atherosclerotic heart disease of native coronary artery without angina pectoris; I10 Essential (primary) hypertension; E78.5 Hyperlipidemia, unspecified; E03.9 Hypothyroidism, unspecified; Z79.82 Long term (current) use of aspirin
CPT/HCPCS: 51701; 70450; 71010; 73502; 73552; 73562; 73590; 80048; 80076; 81003; 82550; 82553; 83605; 83735; 84132; 84443; 84484; 85025; 85027; 85610; 85730; 87040; 87086; 87088; 87186; 93005; 93970; 96361; 96365; 96366; 96367; 99285; J0696; J1650; J2543; J3260; J3370; J3475